=== PATIENT | male | born 1980 | race Caucasian/White ===

== ENCOUNTER 2024-10-08 16:11 | Emergency (ER) | payer BC, OTHER ==
[~2024-10-08] VITALS: Ht 185.4 cm; Wt 100.0 kg
--- NOTE | 2024-10-08 16:29 | ED.PDOC ---
History of Present Illness HPI Comments 44-year-old male came to the ER stating that he scraped himself about a week ago working in the garage causing skin breakage of the right lower extremity. He was never seen by his provider because he thought the leg was getting better. Last few days he started to notice more redness around the wound. Denies shortness a breath chest pain. Denies leg pain. He does not know when he had his last tetanus. Denies any other symptoms. Time Seen by MD: 16:17 Reviewed Notes: Nurses Notes, Medications, Allergies Information Source: Patient Mode of Arrival: Ambulatory Severity: Moderate Timing: Days Duration: Since onset Past Medical History PAST MEDICAL HISTORY: Denies Surgical History: Denies all surgeries Social History Smoker: Non-Smoker Alcohol: Denies ETOH Use Drugs: Denies Drug Use Constitutional: denies: chills, diaphoresis, fatigue, fever, malaise, sweats, weakness, others EENTM: denies: blurred vision, double vision, ear bleeding, ear discharge, ear drainage, ear pain, ear ringing, eye pain, eye redness, hearing loss, mouth pain, mouth swelling, nasal discharge, nose bleeding, nose congestion, nose pain, photophobia, tearing, throat pain, throat swelling, voice changes, others Respiratory: denies: cough, hemoptysis, orthopnea, SOB at rest, shortness of breath, SOB with excertion, stridor, wheezing, others Cardiovascular: denies: chest pain, dizzy spells, diaphoresis, Dyspnea on exertion, edema, irregular heart beat, left arm pain, lightheadedness, palpitations, PND, syncope, others Gastrointestinal: denies: abdomen distended, abdominal pain, blood streaked bowels, constipated, diarrhea, dysphagia, difficulty swallowing, hematemesis, melena, nausea, poor appetite, poor fluid intake, rectal bleeding, rectal pain, vomiting, others Genitourinary: denies: burning, dysuria, flank pain, frequency, hematuria, incontinence, penile discharge, penile sore, pain, testicle pain, testicle swelling, urgency, others Neurological: denies: dizziness, fainting, headache, left sided numbness, left sided weakness, numbness, paresthesia, pre-existing deficit, right sided numbness, right sided weakness, seizure, speech problems, tingling, tremors, weakness, others Musculoskeletal: denies: back pain, gout, joint pain, joint swelling, muscle pain, muscle stiffness, neck pain, others Integumetry: reports: wounds (Right lower extremity); denies: bruises, change in color, change in hair/nails, dryness, laceration, lesions, lumps, rash, others Allergic/Immunocompromised: denies: Difficulty Healing, Frequent Infections, Hives, Itching, others Hematologic/Lymphatic: denies: anemia, blood clots, easy bleeding, easy bruising, swollen glands, others Endocrine: denies: excessive hunger, excessive sweating, excessive thirst, excessive urination, flushing, intolerance to cold, intolerance to heat, unexplained weight gain, unexplained weight loss, others Psychiatric: denies: anxiety, bipolar disorder, depression, hopeless, panic disorder, schizophrenia, sleepless, suicidal, others Physical Exam General Appearance: Moderate Distress HEENT: Normal ENT Inspection, Pharynx Normal, TMs Normal Neck: Full Range of Motion, Non-Tender, Normal, Normal Inspection Respiratory: Chest Non-Tender, Lungs Clear, No Accessory Muscle Use, No Respiratory Distress, Normal Breath Sounds Cardiovascular: No Edema, No JVD, No Murmur, No Gallop, Normal Peripheral Pulses, Regular Rate/Rhythm Breast Exam: Deferred Gastrointestinal: No Organomegaly, Non Tender, No Pulsatile Mass, Normal Bowel Sounds, Soft Genitalia: Deferred Pelvic: Deferred Rectal: Deferred Extremities: No calf tenderness, Normal range of motion, No pedal edema Musculoskeletal : Apperance: Normal Neurologic: Alert, No Motor Deficits, No Sensory Deficits Cerebellar Function: Normal Reflexes: Normal Skin: Wounds (Right lower extremity) Peripheral Pulses: 3+ Radial (R), 3+ Radial (L) Lymphatic: No Adenopathy Was a procedure done? Was a procedure done?: No Differential Dx Considerations may include: Cellulitis X-Ray, Labs, Meds, VS Patient alert. Complaining of redness of the right lower extremity. Had injury to that extremity a week ago. Vitals stable. Answering questions. No shortness a breath. No chest pain. No pain on walking. Patient insists on going home. Was given tetanus. Was given Rocephin. Was given prescription of amoxicillin clindamycin antibiotic. Explained to the patient. Insists on leaving. Signed against medical advice. Was told to come back if there is any problem. Time of 1ST Reevaluation: 16:35 Reevaluation 1ST: Unchanged Patient Education/Counseling: Diagnosis, Treatment, Prognosis, Need For Follow Up Family Education/Counseling: No Family Present Departure 1 Departure Time of Disposition: 16:37 Impression: Primary Impression: Cellulitis Qualified Codes: L03.115 - Cellulitis of right lower limb Disposition: ADMITTED INPATIENT Admit to: Med Surg Condition: Guarded e-Prescriptions Clindamycin Hcl (Clindamycin Hcl) 300 Mg Cap 1 CAP PO TID for 10 Days, #30 CAP Prov: GISELA POST MD 10/08/24 Amoxicillin Trihydrate (Amoxicillin) 500 Mg Cap 1 CAP PO TID for 10 Days, #30 CAP Prov: GISELA POST MD 10/08/24 Critical Care Note Critical Care Time?: No Stability Stability form required: No Heart Score Heart Score: Heart Score Response (Comments) Value History N/A 0 EKG N/A 0 Age N/A 0 Risk Factors N/A 0 Troponin N/A 0 Total 0 GISELA POST MD Oct 08, 2024 16:29
[2024-10-08 16:35] VITALS: BP 216/110; PULSE 108; RESP 20; O2SAT 98
[2024-10-08] MEDS ORDERED: CLIN1CAP70 PO (16:38)
[2024-10-08] MEDS ORDERED: AMOX500C2 PO (16:38)
[2024-10-08] MEDS: cefTRIAXone SOD 1,000 MG VL IM ONE (16:50)
[2024-10-08] MEDS: TETANUS-DIPTH-ACEL PERTUSSIS 0.5ML SYR Tdap IM ONE (16:51)
[2024-10-08] MEDS: cloNIDine HCL 0.1 MG TAB PO ONE (16:52)
== END 2024-10-08 17:00 | disposition left against medical advice (07) ==
LOC: ER 16:11
DX: L03.115 Cellulitis of right lower limb (principal)
CPT/HCPCS: 90471; 90715; 96372; 99284; J0696

== ENCOUNTER 2025-04-22 20:26 | Inpatient (IN) | payer BC ==
[~2025-04-22] VITALS: Ht 185.4 cm; Wt 91.9 kg
[~2025-04-22 20:26] MED LIST: AMOX500C2 PO; CLIN1CAP70 PO
--- NOTE | 2025-04-22 21:03 | ED.PDOC ---
History of Present Illness HPI Comments This is a 44 year-old male who presents to the ED for a wound check S/P amputation of the R foot 3rd, 4th, and 5th digits X2 weeks ago. Patient is unable to ambulate and arrived to the ED via wheelchair. Patient states the amputation was done in the [place] X2 weeks ago, due to an infection caused by DM. Patient reports taking Antibiotics, Amoxicillin and Penicillin, daily, as prescribed. Patient states he removed the vacuum dressing from the wound yesterday. Patient denies having a scheduled appt with his PCP for follow up of the wound. At this time, the patients wound was re-wrapped with non-adherent padding applied. Patient has no further complaints at this time and otherwise denies further associated symptoms of rash, itchiness, uncontrolled bleeding, drainage, or N/V/D. REVIEW OF SYSTEMS: General: No fever, no chills, positive fatigue HEENT: No sore throat, no earache, no congestion, positive neck pain. Cardiac: No chest pain. No palpitations. Lungs: Positive shortness of breath, no cough. GI: No nausea, no vomiting, no diarrhea, no constipation, no abdominal pain : No dysuria, frequency, or urgency. Positive hematuria. Musculoskeletal: Positive joint pain , no joint swelling, no extremity edema. Skin: No rash, no itching. Neuro: No headache, dizziness, or weakness PHYSICAL EXAM: General: Awake, alert and oriented. No acute distress. Skin: Skin in warm, dry and intact. Appropriate color for ethnicity. HEENT: The head is normocephalic and atraumatic. Conjunctivae are clear without exudates or hemorrhage. Sclera is non-icteric. EOM are intact. No signs of nystagmus. Eyelids are normal in appearance without swelling or lesions. Oral mucosa is pink and moist Neck: The neck is supple with painful range of motion. No JVD. Cardiac: Heart rate and rhythm are normal. No murmurs, gallops, or rubs are auscultated. Respiratory: No signs of respiratory distress. Lung sounds are clear in all lobes bilaterally without rales, rhonchi, or wheezes. Abdominal: Abdomen is soft, non-tender without distention, guarding or rigidity. Bowel sounds are present and normoactive in all four quadrants. Extremities: Open wound of the R lateral foot. No purulent drainage noted. Amputation of 3rd 4th and 5th toes. Neurological: The patient is awake, alert and oriented to person, place, and time with normal speech. Speech is clear. There is no facial asymmetry. Psychiatric: Appropriate mood and affect. Good judgement and insight. Chief Complaint: Wound Check Time Seen by MD: 20:39 Primary Care Provider: NONE Reviewed Notes: Nurses Notes, Medications, Allergies Allergies: Coded Allergies: NO KNOWN ALLERGIES (Unverified , 10/08/24) Home Meds Active Scripts Clindamycin Hcl (Clindamycin Hcl) 300 Mg Cap, 1 CAP PO TID for 10 Days, #30 CAP Prov:GISELA POST MD 10/08/24 Amoxicillin Trihydrate (Amoxicillin) 500 Mg Cap, 1 CAP PO TID for 10 Days, #30 CAP Prov:GISELA POST MD 10/08/24 Information Source: Patient Mode of Arrival: Wheelchair Severity: Moderate Timing: Weeks (2) Duration: Since onset Prehospital treatment: None Past Medical History PAST MEDICAL HISTORY: DM Surgical History (Other): Amputation of the R foot 3rd, 4th, and 5th digits Family History Family History: Reviewed,noncontributory to illness, No family hx of Cancer, No family hx of DM, No family hx of Heart sarah, No family hx of HTN, No family hx ofKidney sarah, No family hx of Liver sarah, No family hx of Lung sarah, No family hx of Stroke Social History Smoker: Non-Smoker Alcohol: Denies ETOH Use Drugs: Denies Drug Use Lives In: Home Was a procedure done? Was a procedure done?: No Differential Dx Considerations may include: Infection, hyperglycemia, DKA, renal failure, anemia, other X-Ray, Labs, Meds, VS Vital Signs Date Time Temp Pulse Resp B/P (MAP) Pulse Ox O2 Delivery O2 Flow Rate FiO2 04/23/25 05:08 98.2 86 18 146/74 (98) 98 98.2 04/22/25 20:26 98.2 91 18 146/73 97 98.2 Lab Test 04/22/25 21:00 Range/Units White Blood Count 10.6 4.4-10.8 10^3/uL Red Blood Count 2.47 L 4.5-5.90 10^6/uL Hemoglobin 6.9 *L 13.5-17.5 g/dL Hematocrit 20.8 L 41.0-53.0 % Mean Corpuscular Volume 84.2 80.0-100.0 fL Mean Corpuscular Hemoglobin 28.0 28.0-32.0 pg Mean Corpuscular Hemoglobin Concent 33.2 32.0-36.0 g/dL Red Cell Distribution Width 15.9 H 11.8-14.3 % Platelet Count 448 140-450 10^3/uL Mean Platelet Volume 8.8 6.9-10.8 fL Neutrophils (%) (Auto) 74.9 37.0-80.0 % Lymphocytes (%) (Auto) 15.1 10.0-50.0 % Monocytes (%) (Auto) 8.5 0.0-12.0 % Eosinophils (%) (Auto) 0.8 0.0-7.0 % Basophils (%) (Auto) 0.7 0.0-2.0 % Neutrophils # (Auto) 7.9 1.6-8.6 10 ^3/uL Lymphocytes # (Auto) 1.6 0.4-5.4 10 ^3/uL Monocytes # (Auto) 0.9 0-1.3 10 ^3/uL Eosinophils # (Auto) 0.1 0-0.8 10 ^3/uL Basophils # (Auto) 0.1 0-0.2 10 ^3/uL Nucleated Red Blood Cells 0.0 % Sodium Level 131 L 136-145 mmol/L Potassium Level 4.6 3.5-5.1 mmol/L Chloride Level 98 98-107 mmol/L Carbon Dioxide Level 25 20-31 mmol/L Anion Gap 8 5-15 Blood Urea Nitrogen 29 H 9-23 mg/dL Creatinine 2.22 H 0.700-1.30 mg/dL Glomerular Filtration Rate Calc 37 >90 mL/min BUN/Creatinine Ratio 13.1 10.0-20.0 Serum Glucose 260 H 74-106 mg/dL Calcium Level 8.8 8.7-10.4 mg/dL Current Medications Medications (Trade) Dose Ordered Sig/Erich Route Start Time Stop Time Status Last Admin Sodium Chloride 1,000 ml @ 100 mls/hr Q10H ONCE IV 04/22/25 22:15 04/23/25 08:14 DC 04/22/25 22:15 Images Reviewed?: Images reviewed and evaluated by me Time of 1ST Reevaluation: 21:37 Reevaluation 1ST: Unchanged Patient Education/Counseling: Diagnosis, Treatment Family Education/Counseling: No Family Present Medical Screening: No EMC Exist At This Time SEPSIS Sepsis Screen Date sepsis recognized/suspect: Apr 22, 2025 Time Sepsis recognized/suspect: 2025 Recent Procedure: Yes On Antibiotic Therapy: Yes Respiratory Rate >20: No Heart Rate >90: Yes Temp<36 C (96.8 F) or >38.3 C: No SBP <90 or MAP <65 mmHG: No New Acute Mental Status Change: No Is the patient on CPAP, BIPAP,: No Physician Orders Type And Screen (04/22/25 21:58) Pulse Ox Cont Per Day (04/22/25 21:58) Vital Signs .PER UNIT PROTOCOL (04/22/25 21:58) Administer Blood Products UD (04/22/25 21:58) Vital Signs Date Time Temp Pulse Resp B/P (MAP) Pulse Ox O2 Delivery O2 Flow Rate FiO2 04/23/25 05:08 98.2 86 18 146/74 (98) 98 98.2 04/22/25 20:26 98.2 91 18 146/73 97 98.2 Laboratory Tests Test 04/22/25 21:00 White Blood Count 10.6 10^3/uL (4.4-10.8) Departure 1 Departure Time of Disposition: 22:17 Impression: Primary Impression: Severe anemia Additional Impressions: Hyponatremia RITIKA (acute kidney injury) Disposition: ADMITTED INPATIENT Condition: Stable Comments MDM: 44 y/o male 3 days s/p amputation of right 3rd, 4th, and 5th toes (procedure performed in the [place]) presents for wound check. Recently diagnosed with diabetes. Found to be hyperglycemic, hyponatremic and with Hg of 6.9. Transfusion initiated in the ED. Patient admitted to hospitalist service for further treatm ent, evaluation and monitoring. Extensive evaluation was performed in attempt to identify or rule out: (See differential diagnosis section) The following tests were ordered, and results were reviewed by me and discussed with patient: (See diagnostic results section) Decision regarding hospitalization or escalation of hospital level of care: Risk and benefits of admission for further treatment of patient's condition was considered. Due to patient's current clinical condition, high risk of decline and poor outcome if discharged and need for further inpatient management and monitoring, patient will be admitted to the hospital. Critical Care Note Critical Care Time?: No Stability Stability form required: No Heart Score Heart Score: Heart Score Response (Comments) Value History N/A 0 EKG N/A 0 Age N/A 0 Risk Factors N/A 0 Troponin N/A 0 Total 0 I personally scribed for AMOR DIETRICH MD ([email or web address]) on 04/22/25 at 21:03. Electronically submitted by Neelam Ravi ([email or web address]). AMOR DIETRICH MD Apr 22, 2025 21:03
[2025-04-22 21:16] LABS: Nucleated Red Blood Cells % 0.0 %
[2025-04-22 21:17] LABS: Hematocrit 20.8 % (41.0-53.0); Mean Corpuscular Hemoglobin 28.0 pg (28.0-32.0); Mean Corpuscular Volume 84.2 fL (80.0-100.0)
[2025-04-22 21:27] LABS: Hemoglobin 6.9 g/dL (13.5-17.5)
[2025-04-22 21:28] LABS: Potassium 4.6 mmol/L (3.5-5.1)
[2025-04-22 21:29] LABS: Anion Gap 8 (5-15); Calcium 8.8 mg/dL (8.7-10.4); Carbon Dioxide 25 mmol/L (20-31)
[2025-04-22 21:34] LABS: BUN/Creatinine Ratio 13.1 (10.0-20.0); Blood Urea Nitrogen 29 mg/dL (9-23); Chloride 98 mmol/L (98-107); Glucose 260 mg/dL (74-106); Sodium 131 mmol/L (136-145)
[2025-04-22] MEDS: SODIUM CHLORIDE 0.9% 1,000 ML IV ONE (22:15)
[2025-04-23] VITALS (10 sets, daily range): BP systolic 143–161; BP diastolic 77–89; PULSE 93–98; RESP 12–21; TEMP 97.6–98.6; O2SAT 98
[2025-04-23] MEDS ORDERED: HYDROcodone-ACET 5/325MG TAB PO PRN (08:30)
[2025-04-23] MEDS ORDERED: ACETAMINOPHEN 325 MG TAB PO PRN (08:30)
[2025-04-23] MEDS ORDERED: ONDANSETRON HCL 4 MG/2 ML VIAL IV PRN (08:30)
[2025-04-23] MEDS ORDERED: DOCUSATE SOD 100 MG CAP PO PRN (08:30)
--- NOTE | 2025-04-23 08:32 | DVHHP2 ---
History of Present Illness Reason for Visit: Wound check History of Present Illness Rashard Brewer is a 44-year-old male with no significant past medical history who came to the hospital with a right foot wound. Patient went on a cruise in the [place] for vacation. While there he had a callus on the bottom of his right foot open up. He ended up having to go to port and be hospitalized. During that hospitalization he had his 3rd-5th toes amputated, received blood transfusions, was diagnosed as diabetic, and acute kidney injury. Once the patient was stabilized, he was flown home, accompanied by a physician, to his local hospital to continue his care. Endocrine: Diabetes Past Surgical History: Other (Vasectomy ) Smoke: No ALCOHOL: occassional Drugs: None Lives: with Family Domestic Violence: Neg Review of Systems Constitutional: No: Fever, Chills, Sweats, Weakness, Malaise, Other Eyes: No: Pain, Vision change, Conjunctivae inflammation, Eyelid inflammation, Other, Redness ENT: No: Ear pain, Ear discharge, Nose pain, Nose discharge, Nose congestion, Mouth pain, Mouth swelling, Throat pain, Throat swelling, Other Respiratory: No: Cough, Dry, Shortness of breath, SOB with excertion, Wheezing, Hemoptysis, Pleuritic Pain, Sputum, Wheezing, Other Cardiovascular: Edema (right foot); No: Chest Pain, Palpitations, Orthopnea, Paroxysmal Noc. Dyspnea, Lt Headedness, Other Gastrointestinal: No: Nausea, Vomiting, Abdominal Pain, Diarrhea, Constipation, Melena, Hematochezia, Other Genitourinary: No Dysuria, No Frequency, No Incontinence, No Hematuria, No Retention, No Other Musculoskeletal: foot pain (right foot wound); No: other, neck pain, shoulder pain, arm pain, back pain, hand pain, leg pain Skin: No: Rash, Lesions, Jaundice, Bruising, Other Neurological: No: Weakness, Numbness, Incoordination, Change in speech, Confusion, Seizures, Other Allergies: Coded Allergies: NO KNOWN ALLERGIES (Unverified , 10/08/24) Exam Vital Signs Vital Signs Date Time Temp Pulse Resp B/P (MAP) Pulse Ox O2 Delivery O2 Flow Rate FiO2 04/23/25 05:08 98.2 86 18 146/74 (98) 98 98.2 General Appearance: Alert, Oriented X3, Cooperative, moderate distress HEENT: Atraumatic, PERRLA Respiratory: Clear to auscultation, Normal air movement Cardiovascular: Regular rate, Normal S1, Normal S2, No murmurs Abdominal: Normal bowel sounds, Soft, No tenderness, No hepatospenomegaly Extremities: No clubbing, No cyanosis, No edema, Normal pulses Skin: No rashes, No significant lesion (open wound to right foot, S/P amputation 2 weeks ago) Neuro: Normal speech, Strength at 5/5 X4 ext, Normal tone, Other (non-weight baring to right foot) Psych/Mental Status: Mental status NL, Mood NL Labs/Xrays Labs Test 04/22/25 21:00 Range/Units White Blood Count 10.6 4.4-10.8 10^3/uL Red Blood Count 2.47 L 4.5-5.90 10^6/uL Hemoglobin 6.9 *L 13.5-17.5 g/dL Hematocrit 20.8 L 41.0-53.0 % Mean Corpuscular Volume 84.2 80.0-100.0 fL Mean Corpuscular Hemoglobin 28.0 28.0-32.0 pg Mean Corpuscular Hemoglobin Concent 33.2 32.0-36.0 g/dL Red Cell Distribution Width 15.9 H 11.8-14.3 % Platelet Count 448 140-450 10^3/uL Mean Platelet Volume 8.8 6.9-10.8 fL Neutrophils (%) (Auto) 74.9 37.0-80.0 % Lymphocytes (%) (Auto) 15.1 10.0-50.0 % Monocytes (%) (Auto) 8.5 0.0-12.0 % Eosinophils (%) (Auto) 0.8 0.0-7.0 % Basophils (%) (Auto) 0.7 0.0-2.0 % Neutrophils # (Auto) 7.9 1.6-8.6 10 ^3/uL Lymphocytes # (Auto) 1.6 0.4-5.4 10 ^3/uL Monocytes # (Auto) 0.9 0-1.3 10 ^3/uL Eosinophils # (Auto) 0.1 0-0.8 10 ^3/uL Basophils # (Auto) 0.1 0-0.2 10 ^3/uL Nucleated Red Blood Cells 0.0 % Sodium Level 131 L 136-145 mmol/L Potassium Level 4.6 3.5-5.1 mmol/L Chloride Level 98 98-107 mmol/L Carbon Dioxide Level 25 20-31 mmol/L Anion Gap 8 5-15 Blood Urea Nitrogen 29 H 9-23 mg/dL Creatinine 2.22 H 0.700-1.30 mg/dL Glomerular Filtration Rate Calc 37 >90 mL/min BUN/Creatinine Ratio 13.1 10.0-20.0 Serum Glucose 260 H 74-106 mg/dL Calcium Level 8.8 8.7-10.4 mg/dL SEPSIS Sepsis Screen Date sepsis recognized/suspect: Apr 22, 2025 Time Sepsis recognized/suspect: 2025 Recent Procedure: Yes On Antibiotic Therapy: Yes Respiratory Rate >20: No Heart Rate >90: Yes Temp<36 C (96.8 F) or >38.3 C: No SBP <90 or MAP <65 mmHG: No New Acute Mental Status Change: No Is the patient on CPAP, BIPAP,: No Physician Orders Admit (04/23/25 08:29) Code Status (04/23/25 08:29) 2 Gm Sodium Diet (04/23/25 Breakfast) Hydrocodone-Acet 5/325mg Tab ([place] /32 (04/23/25 08:30) Ondansetron Hcl (Zofran) (04/23/25 08:30) Docusate Sodium Capsule (Colace Capsule) (04/23/25 08:30) Complete Blood Count (04/24/25 04:00) Comprehensive Metabolic Panel (04/24/25 04:00) Pt Request For Service (04/23/25 08:29) Condition: Serious (04/23/25 08:29) Acetaminophen Tablet (Tylenol Tablet) (04/23/25 08:30) *Podiatry Consult Joann(Dv) (04/23/25 08:29) Vital Signs Date Time Temp Pulse Resp B/P (MAP) Pulse Ox O2 Delivery O2 Flow Rate FiO2 04/23/25 05:08 98.2 86 18 146/74 (98) 98 98.2 Laboratory Tests Test 04/22/25 21:00 White Blood Count 10.6 10^3/uL (4.4-10.8) Assessment/Plan Assessment/Plan Assessment: Severe anemia, Acute Kidney injury, Right foot wound, Newly diagnosed diabetic, S/P toe amputation, Plan: Admit to Med-Surg, Podiatry consult, Arterial Doppler of right leg, IV antibiotics, IV hydration, Transfuse 2 units of PRBC, Manage/Monitor H&H closely, Wound care consult, A1c, Accu checks with sliding scale coverage, Plan discussed with: Patient, Spouse My Orders Orders - KAMI GIMENEZ Procedure Category Date Status Time Admit ADMIT 04/23/25 Verified 08:29 Code Status CODE 04/23/25 Verified 08:29 2 Gm Sodium Diet DIET 04/23/25 Verified Breakfast Hydrocodone-Acet PHA 04/23/25 Verified 5/325mg Tab ([place] 08:30 Ondansetron Hcl PHA 04/23/25 Verified (Zofran) 08:30 Docusate Sodium PHA 04/23/25 Verified Capsule (Colace 08:30 Complete Blood Count LAB 04/24/25 Verified 04:00 Comprehensive LAB 04/24/25 Verified Metabolic Panel 04:00 Pt Request For Service PT 04/23/25 Verified 08:29 Condition: Serious ZUHAIR 04/23/25 Verified 08:29 Acetaminophen Tablet PHA 04/23/25 Verified (Tylenol Tablet) 08:30 *Podiatry Consult CONS 04/23/25 Verified Musson(Dvmg) 08:29 Date of Service: Apr 23, 2025 Billing Provider: KAMI GIMENEZ Common Visit Codes: [id number] INP/OBS CARE (HIGH) KAMI GIMENEZ Apr 23, 2025 08:32
[2025-04-23] MEDS ORDERED: VANCOMYCIN PER PHARMACY 0 MG IV SCH (08:45)
[2025-04-23] MEDS ORDERED: VANCOMYCIN 1GM/250ML KIT 250 ML IV SCH (09:00)
[2025-04-23] MEDS ORDERED: DEXTROSE (50%) 50ML SYRG IV PRN (09:30)
[2025-04-23] MEDS ORDERED: InsuLIN REG 1unit/0.01ml Soln (100units/ml) SC SCH ×2 (11:30→22:00)
[2025-04-23] MEDS: ACCU-CHEK COMFORT CURVE STRIP VI SCH (11:30)
--- NOTE | 2025-04-23 12:32 | DVH ---
RIGHT Lower Extremity Arterial Duplex Date: 04/23/2025 11:43 AM Clinical History: PVD, open foot wound Comparison: None Technique: Duplex Doppler evaluation including color Doppler and spectral/pulsed waveform analysis of the right lower extremity arteries was performed. Finding: RIGHT: Peak systolic velocities are as follows: [employer] 147 cm/s Deep femoral 116 cm/s SFA proximal 105 cm/s SFA mid-portion 102 cm/s SFA distal 87 cm/s Popliteal 102 cm/s Posterior tibial 67 cm/s Dorsalis pedis 115 cm/s The waveforms are triphasic. REFERENCE VALUES, [facility]) vascular Imaging Lab Criteria: Peak systolic velocity ranges (in cm/sec) are as follows: <150 cm/s - <20 % stenosis 150-200 cm/s - 20-49% stenosis 200-300 cm/s - 50-75% stenosis >300 cm/s -> 75% stenosis IMPRESSION: There is no evidence for peripheral vascular insufficiency in the right lower extremity. No significant focal stenosis is identified.
--- NOTE | 2025-04-23 14:13 | DVHPN2 ---
Assessment/Plan Assessment/Plan progress note 44 M w recent OSH admission for leg wound s/p 4th and 5th toe amputation and iv coamox. 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 unasyn podiatri consult lantus and iss trend cr cmp diet diabetic dvt ppx hold full code Plan discussed with: Patient My Orders Orders - JESSIE SNOW MD Procedure Category Date Status Time Unasyn PHA 04/23/25 Verified Ampicillin/Sulbactam 14:15 Insulin Lantus PHA 04/23/25 Verified (Glargine) (Lantus) 22:00 Insulin Lispro PHA 04/23/25 Verified (Human) (Humalog) 17:00 Date of Service: Apr 23, 2025 Billing Provider: JESSIE SNOW MD Common Visit Codes: [id number] INP/OBS CARE(HIGH) JESSIE SNOW MD Apr 23, 2025 14:13
[2025-04-23] MEDS ORDERED: AMPICILLIN & SULBACTAM SODIUM 3 GM in SODIUM CHL 0.9% 100 ML IV SCH (14:15)
[2025-04-23] MEDS: INSULIN LISPRO (HUMAN) 100 UNITS/ML ML SC SCH (17:00)
[2025-04-23] MEDS ORDERED: INSLANTI SC (18:35)
[2025-04-23] MEDS: AMPICILLIN & SULBACTAM SODIUM 3 GM in SODIUM CHL 0.9% 100 ML IV SCH (20:43)
[2025-04-23] MEDS: INSULIN LANTUS (GLARGINE) 1 /0.01ml (100units/ml) SC SCH (22:38)
[2025-04-24] VITALS (9 sets, daily range): BP systolic 153–189; BP diastolic 81–99; PULSE 83–101; RESP 16–20; TEMP 96.8–98.6; O2SAT 96–99
[2025-04-24 07:35] LABS: Hematocrit 24.0 % (41.0-53.0); Nucleated Red Blood Cells % 0.1 %
[2025-04-24 07:39] LABS: Alanine Aminotransferase 22 U/L (7-40); Anion Gap 8 (5-15); BUN/Creatinine Ratio 15.5 (10.0-20.0); Carbon Dioxide 22 mmol/L (20-31); Chloride 106 mmol/L (98-107); Potassium 5.1 mmol/L (3.5-5.1); Sodium 136 mmol/L (136-145)
[2025-04-24 07:40] LABS: Bilirubin, Total 0.4 mg/dL (0.2-1.0); Hemoglobin 8.1 g/dL (13.5-17.5); Mean Corpuscular Hemoglobin 29.0 pg (28.0-32.0); Mean Corpuscular Volume 86.3 fL (80.0-100.0)
[2025-04-24 07:46] LABS: Albumin 2.9 g/dL (3.2-4.8); Alkaline Phosphatase 305 U/L (46-116); Blood Urea Nitrogen 30 mg/dL (9-23); Calcium 8.3 mg/dL (8.7-10.4); Glucose 190 mg/dL (74-106); Total Protein 5.3 g/dL (5.7-8.2)
--- NOTE | 2025-04-24 09:26 | DVHPN2 ---
Assessment/Plan Assessment/Plan progress note 44 M w recent OSH admission for leg wound s/p 4th and 5th toe amputation and iv coamox. seen today, pend podiatry eval. 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 unasyn podiatri consult lantus and iss trend cr cmp diet diabetic dvt ppx hold full code Plan discussed with: Patient My Orders Orders - JESSIE SNOW MD Procedure Category Date Status Time Insulin Lantus PHA 04/23/25 In Process (Glargine) (Lantus) 22:00 Insulin Lispro PHA 04/23/25 In Process (Human) (Humalog) 17:00 * Dietary Consult CONS 04/23/25 Transmitted 17:59 Ampicillin & PHA 04/23/25 In Process Sulbactam Sodium 20:00 Date of Service: Apr 24, 2025 Billing Provider: JESSIE SNOW MD Common Visit Codes: [id number] INP/OBS CARE(HIGH) JESSIE SNOW MD Apr 24, 2025 09:26
--- NOTE | 2025-04-24 13:07 | DVHCONRES ---
Date Seen: Apr 24, 2025 Reason for Consultation Right foot wound History of Present Illness Rashard Brewer is a 44-year-old male with no significant past medical history who came to the hospital with a right foot wound. Patient went on a cruise in the [place] for vacation. While there he had a callus on the bottom of his right foot open up. He ended up having to go to port and be hospitalized. During that hospitalization he had his 3rd-5th toes amputated, received blood transfusions, was diagnosed as diabetic, and acute kidney injury. Once the patient was stabilized, he was flown home, accompanied by a physician, to his local hospital to continue his care. Past Medical History See H&P Past Surgical History See H&P Family History: Diabetes mellitus G8 MOTHER G8 FATHER Allergies: Coded Allergies: NO KNOWN ALLERGIES (Unverified , 10/08/24) Home Meds Reported Medications Insulin Glargine (Lantus) 100 Unit/Ml Inj, 20 UNIT SC, INJ 04/23/25 Current Medications Current Medications Medications (Trade) Dose Ordered Sig/Erich Route PRN Reason Start Time Stop Time Status Last Admin Insulin Human Regular (InsuLIN R) HS SC 04/23/25 22:00 04/23/25 14:10 DC Ampicillin Sodium/ Sulbactam Sodium 3 gm/Sodium Chloride 100 ml @ 100 mls/hr Q6H IV 04/23/25 14:15 04/23/25 18:15 DC Insulin Glargine (Lantus) 20 units HS SC 04/23/25 22:00 04/23/25 22:38 Insulin Human Lispro (HumaLOG) AC SC 04/23/25 17:00 04/24/25 06:56 Ampicillin Sodium/ Sulbactam Sodium 3 gm/Sodium Chloride 100 ml @ 100 mls/hr Q6H IV 04/23/25 20:00 04/24/25 08:30 Vital Signs Vital Signs Date Time Temp Pulse Resp B/P (MAP) Pulse Ox O2 Delivery O2 Flow Rate FiO2 04/24/25 09:00 98.6 97 18 165/93 (117) 99 98.6 04/23/25 20:00 Room Air* 0 21 Physical Exam Dermatological: Skin is dry with mild erythema and some maceration around the wound site No gross deformities noted Mild non-pitting edema present bilaterally Right lateral open wound where previous amputation was made with granular base no apparent wound Vascular: Dorsalis pedis and posterior tibial pulses are 1+ bilaterally Capillary refill is under 2 seconds Skin temperature is warm bilaterally Neurologic: Protective sensation is absent on the plantar forefoot bilaterally Monofilament testing reveals decreased sensation in multiple plantar sites Musculoskeletal: Range of motion at the ankle and MTP joints is within normal limits. Strength is 5/5 in all tested muscle groups. Gait is antalgic due to offloading of the affected limb. Labs/Diagnostic Data Labs Test 04/24/25 11:22 04/24/25 06:47 04/23/25 09:40 Range/Units POC Glucose 141 H 70-106 mg/dl White Blood Count 7.7 # 4.4-10.8 10^3/uL Red Blood Count 2.78 L 4.5-5.90 10^6/uL Hemoglobin 8.1 #L 13.5-17.5 g/dL Hematocrit 24.0 #L 41.0-53.0 % Mean Corpuscular Volume 86.3 80.0-100.0 fL Mean Corpuscular Hemoglobin 29.0 28.0-32.0 pg Mean Corpuscular Hemoglobin Concent 33.6 32.0-36.0 g/dL Red Cell Distribution Width 16.1 H 11.8-14.3 % Platelet Count 331 140-450 10^3/uL Mean Platelet Volume 8.9 6.9-10.8 fL Neutrophils (%) (Auto) 72.5 37.0-80.0 % Lymphocytes (%) (Auto) 15.4 10.0-50.0 % Monocytes (%) (Auto) 9.9 0.0-12.0 % Eosinophils (%) (Auto) 1.3 0.0-7.0 % Basophils (%) (Auto) 0.9 0.0-2.0 % Neutrophils # (Auto) 5.6 1.6-8.6 10 ^3/uL Lymphocytes # (Auto) 1.2 0.4-5.4 10 ^3/uL Monocytes # (Auto) 0.8 0-1.3 10 ^3/uL Eosinophils # (Auto) 0.1 0-0.8 10 ^3/uL Basophils # (Auto) 0.1 0-0.2 10 ^3/uL Nucleated Red Blood Cells 0.1 % Sodium Level 136 # 136-145 mmol/L Potassium Level 5.1 3.5-5.1 mmol/L Chloride Level 106 98-107 mmol/L Carbon Dioxide Level 22 20-31 mmol/L Anion Gap 8 5-15 Blood Urea Nitrogen 30 H 9-23 mg/dL Creatinine 1.93 H 0.700-1.30 mg/dL Glomerular Filtration Rate Calc 43 >90 mL/min BUN/Creatinine Ratio 15.5 10.0-20.0 Serum Glucose 190 H 74-106 mg/dL Calcium Level 8.3 L 8.7-10.4 mg/dL Total Bilirubin 0.4 0.2-1.0 mg/dL Aspartate Amino Transferase (AST) 16 13-40 U/L Alanine Aminotransferase (ALT) 22 7-40 U/L Alkaline Phosphatase 305 H 46-116 U/L Total Protein 5.3 L 5.7-8.2 g/dL Albumin 2.9 L 3.2-4.8 g/dL Random Vancomycin Level < 3.0 L 5-10 ug/mL Hemoglobin A1c 10.5 H <5.7 % A1C Problems(with codes): (1) Cellulitis (2) Hyponatremia (3) RITIKA (acute kidney injury) (4) Severe anemia Plan/Recommendation ASSESSMENT: Patient is a 44 year old seen on the floor for a worsening ulcer PLAN: - The patients chart was reviewed, clinical findings were discussed with the patient, the etiologies of the conditions were discussed in detail, and a treatment plan was agreed to at this time, with both oral and written instructions provided. - recommend we get an MRI of the right foot to rule out any remaining osteomyelitis - patient will need a wound VAC upon discharge - possible PICC line 6 weeks IV antibiotics depending on MRI - wound itself looks like most of the remaining bone has been granulated upon - can follow up me a week or 2 after discharge All questions were answered and concerns addressed to the patient's satisfaction. The patient was given the phone number to the clinic and was told how to make contact with the clinic should any concerns or questions arise. Patient understands that if any questions or concerns arise prior to the next appointment, we should be contacted immediately. FOLLOW-UP: Continue to follow while inpatient Plan discussed with: Patient Visit Coding Podiatry Date of Service if different f: Apr 24, 2025 Billing Provider: BOB TOBIN DPM Podiatry Common Visit Codes: CONSULT ONLY Podiatry Consult Codes: 91405-XJ/OBS CONSLTJ NEW/EST HI 80 BOB TOBIN DPM Apr 24, 2025 13:07
--- NOTE | 2025-04-24 18:24 | DVH ---
EXAM: MRI MRI R FOOT WO CONTRAST INDICATION: r/o OM TECHNIQUE: Multiplanar, multisequence imaging of the right foot without contrast COMPARISON: None FINDINGS: BONES: Significant osteomyelitis of the residual stumps of the 4th and 5th metatarsals with prominent overlying ulceration and phlegmon. Deep possible insinuating fluid of the plantar lateral aspect of the midfoot measuring 2.5 x 1.5 cm, incompletely characterized without intravenous contrast MUSCLES: Diffuse edematous appearance likely compatible with a myositis and/or subacute on chronic de nervation of the intrinsic musculature. Mild fatty infiltration along abductor digiti minimi muscle b yevgeniy. TENDONS: Status post resection along the 4th and 5th digit tendons related to amputation LIGAMENTS: Intact. JOINT SPACES: No joint effusion. NEUROVASCULAR: Normal. OTHER: None. IMPRESSION: 1. Significant osteomyelitis of the residual stumps of the 4th and 5th metatarsals with prominent ove rlying ulceration and phlegmon. 2. Deep possible insinuating fluid of the plantar lateral aspect of the midfoot measuring 2.5 x 1.5 c m, incompletely characterized without intravenous contrast. 3. Diffuse edematous appearance likely compatible with a myositis and/or subacute on chronic denervat ion of the intrinsic musculature.
[2025-04-25] VITALS (8 sets, daily range): BP systolic 155–178; BP diastolic 83–99; PULSE 96–102; RESP 16–20; TEMP 97.9–98.5; O2SAT 96–99
[2025-04-25 07:00] LABS: Hematocrit 23.8 % (41.0-53.0); Hemoglobin 7.9 g/dL (13.5-17.5); Mean Corpuscular Hemoglobin 27.7 pg (28.0-32.0); Mean Corpuscular Volume 83.1 fL (80.0-100.0); Nucleated Red Blood Cells % 0.1 %
[2025-04-25 07:18] LABS: Anion Gap 10 (5-15); Carbon Dioxide 25 mmol/L (20-31); Chloride 103 mmol/L (98-107); Potassium 4.3 mmol/L (3.5-5.1); Sodium 138 mmol/L (136-145)
[2025-04-25 07:20] LABS: Calcium 8.5 mg/dL (8.7-10.4)
[2025-04-25 07:24] LABS: BUN/Creatinine Ratio 12.3 (10.0-20.0)
[2025-04-25 07:27] LABS: Blood Urea Nitrogen 23 mg/dL (9-23); Glucose 189 mg/dL (74-106)
[2025-04-25 10:53] LABS: INR 1.04 (0.9-1.15); Partial Thromboplastin Time 27.9 SEC (24.5-34.5); Prothrombin Time 11.0 sec (9.3-11.8)
--- NOTE | 2025-04-25 14:11 | DVHDS2 ---
Discharge Summary Date of Admission Apr 23, 2025 at 08:29 Date of Discharge: Apr 25, 2025 Labs/Diagnostic Data: Laboratory Results Test 04/25/25 10:23 04/25/25 10:00 04/25/25 06:19 04/25/25 05:46 Prothrombin Time 11.0 sec (9.3-11.8) Prothrombin Time INR 1.04 (0.9-1.15) Activated Partial Thromboplast Time 27.9 SEC (24.5-34.5) POC Glucose 188 mg/dl (70-106) White Blood Count 7.3 10^3/uL (4.4-10.8) Red Blood Count 2.86 10^6/uL (4.5-5.90) Hemoglobin 7.9 g/dL (13.5-17.5) Hematocrit 23.8 % (41.0-53.0) Mean Corpuscular Volume 83.1 fL (80.0-100.0) Mean Corpuscular Hemoglobin 27.7 pg (28.0-32.0) Mean Corpuscular Hemoglobin Concent 33.3 g/dL (32.0-36.0) Red Cell Distribution Width 15.4 % (11.8-14.3) Platelet Count 347 10^3/uL (140-450) Mean Platelet Volume 9.1 fL (6.9-10.8) Neutrophils (%) (Auto) 73.4 % (37.0-80.0) Lymphocytes (%) (Auto) 15.1 % (10.0-50.0) Monocytes (%) (Auto) 8.4 % (0.0-12.0) Eosinophils (%) (Auto) 2.3 % (0.0-7.0) Basophils (%) (Auto) 0.8 % (0.0-2.0) Neutrophils # (Auto) 5.4 10 ^3/uL (1.6-8.6) Lymphocytes # (Auto) 1.1 10 ^3/uL (0.4-5.4) Monocytes # (Auto) 0.6 10 ^3/uL (0-1.3) Eosinophils # (Auto) 0.2 10 ^3/uL (0-0.8) Basophils # (Auto) 0.1 10 ^3/uL (0-0.2) Nucleated Red Blood Cells 0.1 % Sodium Level 138 mmol/L (136-145) Potassium Level 4.3 mmol/L (3.5-5.1) Chloride Level 103 mmol/L (98-107) Carbon Dioxide Level 25 mmol/L (20-31) Anion Gap 10 (5-15) Blood Urea Nitrogen 23 mg/dL (9-23) Creatinine 1.87 mg/dL (0.700-1.30) Glomerular Filtration Rate Calc 45 mL/min (>90) BUN/Creatinine Ratio 12.3 (10.0-20.0) Serum Glucose 189 mg/dL (74-106) Calcium Level 8.5 mg/dL (8.7-10.4) Test 04/24/25 06:47 04/23/25 09:40 Total Bilirubin 0.4 mg/dL (0.2-1.0) Aspartate Amino Transferase (AST) 16 U/L (13-40) Alanine Aminotransferase (ALT) 22 U/L (7-40) Alkaline Phosphatase 305 U/L (46-116) Total Protein 5.3 g/dL (5.7-8.2) Albumin 2.9 g/dL (3.2-4.8) Random Vancomycin Level < 3.0 ug/mL (5-10) Hemoglobin A1c 10.5 % A1C (<5.7) Other Laboratory Tests 04/25/25 05:46 Brief Hx & Hospital Course: 44 M w recent OSH admission for leg wound s/p 4th and 5th toe amputation and iv coamox. seen by podiatry. MRI showed osteo. place picc line. 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 anemia s/p transfusion osteomyelitis Discharge Disposition: Home with Health Services Discharge Instruct/Medications Miscellaneous Medications Insulin Glargine (Lantus), 20 UNIT SC, (Reported) Discharge Statement: "Patient was advised to return to the ER or call 911 if any headaches, dizziness, shortness of breath, chest pain, abdominal pain, bleeding, fevers, or worsening of medical condition. Patient was counseled about treatment plan, medications, possible side effects, patientverbalized understanding. All questions were answered to the best of my ability. This discharge took greater then 30 minutes in planning, reviewing documentation, counseling the patient, and discussing with other team members." ASSESSMENT ASSESSMENT Assessment Date of Service: Apr 25, 2025 Billing Provider: JESSIE SNOW MD Common Visit Codes: 71982-QXQ/OBS DISCH DAY >30min JESSIE SNOW MD Apr 25, 2025 14:11
[2025-04-25] MEDS ORDERED: METF-490 PO (14:19)
[2025-04-25] MEDS ORDERED: AMLO1TAB23 PO (14:19)
[2025-04-25] MEDS ORDERED: ALCO70PA28 XX (14:19)
[2025-04-25] MEDS ORDERED: BLOOMIS91 XX (14:19)
[2025-04-25] MEDS ORDERED: INSU100I70 SC (14:19)
[2025-04-25] MEDS ORDERED: LANC-347 XX (14:19)
[2025-04-25] MEDS ORDERED: GLUC-145 VI (14:19)
[2025-04-25] MEDS ORDERED: INSU32MI9 XX (14:19)
[2025-04-25] MEDS: LISINOPRIL 5 MG TAB PO ONE (15:52)
[2025-04-25] MEDS: ERTAPENEM SOD INJ 1 GM in SODIUM CHL 0.9% 50 ML IV ONE (15:53)
[2025-04-25] MEDS: LIDOCAINE 1% (LOCAL ANESTH.) PF 5ml SDV ID ONE (19:15)
[2025-04-25] MEDS: SODIUM CHLOR 0.9% PF (SALINE LOCK) 10ML VIAL/SYR IV SCH (21:01)
[2025-04-26] VITALS (7 sets, daily range): BP systolic 151–174; BP diastolic 86–98; PULSE 92–100; RESP 12–20; TEMP 97.4–98.5; O2SAT 92–99
[2025-04-26 07:23] LABS: Hemoglobin 7.9 g/dL (13.5-17.5); Nucleated Red Blood Cells % 0.0 %
[2025-04-26 07:25] LABS: Hematocrit 23.3 % (41.0-53.0); Mean Corpuscular Hemoglobin 28.3 pg (28.0-32.0); Mean Corpuscular Volume 83.0 fL (80.0-100.0)
[2025-04-26 07:41] LABS: Alanine Aminotransferase 27 U/L (7-40); Chloride 102 mmol/L (98-107)
[2025-04-26 07:42] LABS: Albumin 3.3 g/dL (3.2-4.8); Anion Gap 10 (5-15); BUN/Creatinine Ratio 10.4 (10.0-20.0); Bilirubin, Total 0.4 mg/dL (0.2-1.0); Blood Urea Nitrogen 21 mg/dL (9-23); Carbon Dioxide 26 mmol/L (20-31); Potassium 4.2 mmol/L (3.5-5.1); Sodium 138 mmol/L (136-145); Total Protein 6.2 g/dL (5.7-8.2)
[2025-04-26 07:44] LABS: Alkaline Phosphatase 370 U/L (46-116); Calcium 8.6 mg/dL (8.7-10.4); Glucose 134 mg/dL (74-106)
[2025-04-26] MEDS: ERTAPENEM SOD INJ 1 GM in SODIUM CHL 0.9% 50 ML IV SCH (11:20)
--- NOTE | 2025-04-26 15:31 | DVHPN2 ---
Subjective denies any pain/no complaints Changes from previous H/P or p: No Changes Eyes: No Pain, No Vision change, No Conjunctivae inflammation, No Eyelid inflammation, No Other, No Redness ENT: No Ear pain, No Ear discharge, No Nose pain, No Nose discharge, No Nose congestion, No Mouth pain, No Mouth swelling, No Throat pain, No Throat swelling, No Other Cardiovascular: No Chest Pain, No Palpitations, No Orthopnea, No Paroxysmal Noc. Dyspnea; Edema (right foot); No Lt Headedness, No Other Respiratory: No Cough, No Dry, No Shortness of breath, No SOB with excertion, No Wheezing, No Hemoptysis, No Pleuritic Pain, No Sputum, No Other Gastrointestinal: No Nausea, No Vomiting, No Abdominal Pain, No Diarrhea, No Constipation, No Melena, No Hematochezia, No Other Genitourinary: No Dysuria, No Frequency, No Incontinence, No Hematuria, No Retention, No Other Musculoskeletal: No other, No neck pain, No shoulder pain, No arm pain, No back pain, No hand pain, No leg pain; foot pain (right foot wound) Skin: No Rash, No Lesions, No Jaundice, No Bruising, No Other Objective Vitals Vital Signs Date Time Temp Pulse Resp B/P (MAP) Pulse Ox O2 Delivery O2 Flow Rate FiO2 04/26/25 13:06 98.3 96 18 174/90 (118) 97 98.3 04/26/25 08:00 Room Air* 0 21 Intake/Output Intake and Output 04/26/25 07:00 Intake Total 1150 ml Output Total 425 ml Balance 725 ml Intake Oral 900 ml IV Total 250 ml Output Urine Total 425 ml # Voids 3 # Bowel Movements 2 General Appearance: Alert, Oriented X3, Cooperative, No acute distress Cardiovascular: Regular rate, Normal S1, Normal S2 Abdomen: Normal bowel sounds, Soft, No tenderness, No hepatospenomegaly Musculoskeletal: Normal sensory function, Normal motor function Extremities: Other (wound dressing in place-in rt leg) Neuro: Normal gait, Strength at 5/5 X4 ext, Normal tone, Sensation intact, C ranial nerves 3-12 NL Psych/Mental Status: Mental status NL, Mood NL Medications Current Medications Medications Dose Ordered Sig/Erich Route Start Time Stop Time Status Last Admin Dose Admin Acetaminophen 650 mg Q6HP PRN PO 04/23/25 08:30 Vancomycin HCl 250 ml @ 250 mls/hr Q1H IV 04/23/25 09:00 04/23/25 10:59 Cancel Diagnostic Test (Pha) 1 strip ACHS 04/23/25 11:30 04/26/25 14:06 1 STRIP Dextrose 50 ml UD PRN IV 04/23/25 09:30 Insulin Glargine 20 units HS SC 04/23/25 22:00 04/25/25 21:02 20 UNITS Insulin Human Lispro AC SC 04/23/25 17:00 04/25/25 16:58 1 UNITS Ertapenem 1 gm/ Sodium Chloride 50 ml @ 100 mls/hr DAILY IV 04/26/25 10:00 04/26/25 11:20 100 MLS/HR Sodium Chloride 10 ml QSHIFT@10,22 IV 04/25/25 22:00 04/26/25 11:21 10 ML Laboratory Results Laboratory Tests 04/26/25 05:35 Chemistry Test 04/26/25 05:35 Albumin 3.3 g/dL (3.2-4.8) Calcium Level 8.6 mg/dL (8.7-10.4) L Total Protein 6.2 g/dL (5.7-8.2) LFT Test 04/26/25 05:35 Alanine Aminotransferase (ALT) 27 U/L (7-40) Alkaline Phosphatase 370 U/L (46-116) H Aspartate Amino Transferase (AST) 22 U/L (13-40) Total Bilirubin 0.4 mg/dL (0.2-1.0) Microbiology Microbiology Date/Time Source Procedure Growth Status 04/25/25 10:02 Nose MRSA Screen - Final Complete Labs and/or images reviewed: Labs reviewed by me, Image(s) reviewed by me Assessment/Plan Assessment/Plan rt foot osteomyelitis- per podiatry med management s/p recent amputation of rt 4th and 5th toe for infection/gangrene dm with hyperglycemia-improved anemia- stable/no active bleeding Plan discussed with: Patient, Other Date of Service: Apr 26, 2025 Billing Provider: SABRINA FERRARO MD Common Visit Codes: [id number] INP/OBS CARE(LOW) SABRINA FERRARO MD Apr 26, 2025 15:30
[2025-04-27 05:00] VITALS: BP 157/95; PULSE 93; RESP 20; TEMP 98.1; O2SAT 96
[2025-04-27 08:00] VITALS: PULSE 95
[2025-04-27 09:00] VITALS: BP 157/88; PULSE 95; RESP 12; TEMP 98.3; O2SAT 98
[2025-04-27 13:00] VITALS: BP 163/92; PULSE 97; RESP 12; TEMP 97.8; O2SAT 97
[2025-04-27] MEDS: hydrALAZINE HCL 20 MG/ML VL IV PRN (16:46)
[2025-04-27 20:00] VITALS: PULSE 94; RESP 20; O2SAT 98
[2025-04-27 21:00] VITALS: BP 148/85; PULSE 94; RESP 20; TEMP 97.4; O2SAT 98
[2025-04-28 05:00] VITALS: BP 147/93; PULSE 96; RESP 20; TEMP 98.2; O2SAT 96
[2025-04-28 08:00] VITALS: PULSE 96
[2025-04-28 09:00] VITALS: BP 157/94; PULSE 96; RESP 12; TEMP 97.7; O2SAT 98
[2025-04-28 12:45] VITALS: BP 158/90; PULSE 94; RESP 16; TEMP 98.1; O2SAT 99
--- NOTE | 2025-04-28 16:40 | DVHPN2 ---
Assessment/Plan Assessment/Plan progress note 44 M w recent OSH admission for leg wound s/p 4th and 5th toe amputation and iv coamox. for dc, pending iv abx and woundvac. 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 unasyn podiatri consult lantus and iss trend cr cmp diet diabetic dvt ppx hold full code Plan discussed with: Patient Date of Service: Apr 28, 2025 Billing Provider: JESSIE SNOW MD Common Visit Codes: 16444-PZM/OBS DISCH DAY >30min JESSIE SNOW MD Apr 28, 2025 16:40
== END 2025-04-28 17:02 | disposition home health service (06) | DRG 638 ==
LOC: ER 20:26 → OVERFLOW 04-23 08:29 → WEST WING 04-23 17:08
PROVIDERS: ADMIT Student in an Organized Health Care Education/Training Program; ATTEND Student in an Organized Health Care Education/Training Program
PROC: 30233N1 Transfusion of Nonautologous Red Blood Cells into Peripheral Vein, Percutaneous Approach (ICD-10-PCS; principal; 2025-04-23)
PROC: 02HV33Z Insertion of Infusion Device into Superior Vena Cava, Percutaneous Approach (ICD-10-PCS; 2025-04-25)
PROC: B548ZZA Ultrasonography of Superior Vena Cava, Guidance (ICD-10-PCS; 2025-04-25)
DX: E11.69 Type 2 diabetes mellitus with other specified complication (principal); E11.52 Type 2 diabetes mellitus with diabetic peripheral angiopathy with gangrene; E87.1 Hypo-osmolality and hyponatremia; M86.8X7 Other osteomyelitis, ankle and foot; N17.9 Acute kidney failure, unspecified; N18.32 Chronic kidney disease, stage 3b; D64.9 Anemia, unspecified; E11.22 Type 2 diabetes mellitus with diabetic chronic kidney disease; E11.65 Type 2 diabetes mellitus with hyperglycemia; R74.01 Elevation of levels of liver transaminase levels; Z89.421 Acquired absence of other right toe(s); Z83.3 Family history of diabetes mellitus; Z79.4 Long term (current) use of insulin
CPT/HCPCS: 36415; 36569; 73718; 76937; 80048; 80053; 80202; 82270; 82962; 83036; 85025; 85610; 85730; 86850; 86900; 86901; 86920; 87081; 93926; 96360; 97110; 97116; 97163; 97530; G0378; J1335; J1815

== ENCOUNTER 2025-04-29 10:59 | Emergency (ER) | payer BC ==
[~2025-04-29] VITALS: Ht 185.4 cm; Wt 96.0 kg
[~2025-04-29 10:59] MED LIST changes: +ALCO70PA28 XX; +AMLO1TAB23 PO; -AMOX500C2 PO; +BLOOMIS91 XX; -CLIN1CAP70 PO; +GLUC-145 VI; +INSLANTI SC; +INSU100I70 SC; +INSU32MI9 XX; +LANC-347 XX; +METF-490 PO
--- NOTE | 2025-04-29 11:22 | ED.PDOC ---
Musculoskeletal HPI Comments HPI: 44 y/o M, with PMHx of asthma and DM, presents to the ED for CC of IV Abx infusion. Patient states, [facility] d/t osteomyelitis following, amputation of the 4th and 5th digits of the right foot. Patient relays, that he was discharged home with antibiotics to have infused at home by home health nurse however, home health nurse was unable to administer them today (04/29/25). Patient denies any pain to his right foot, fever, fatigue, nausea, vomiting, or chills. No other symptoms or modifying factors are present at this time. Past Medical History: ASTHMA, DM Past Surgical History: AMPUTATION 4TH AND 5TH DIGITS OF THE RIGHT FOOT, VASECTOMY REVIEW OF SYSTEMS: CONSTITUTIONAL: Denies acute: fever, diaphoresis, chills, generalized weakness. HEAD: Denies acute: headache, photophobia Eyes: Denies acute: Double vision, vision loss, eye pain, eye discharge. EARS: Denies acute: tinnitus, hearing loss, ear discharge, ear pain, THROAT: Denies acute: sore throat, swelling, difficulty swallowing , pain with swallowing, change in voice. NECK: Denies acute: neck pain, neck swelling, stiff neck. HEART: Denies acute : chest pain, palpitations, LUNGS: Denies acute: SOB, wheezing, cough, hemoptysis ABDOMEN: Denies acute: abdominal pain, Nausea, Vomiting, diarrhea, melena , hematemesis, hematochezia SKIN: Denies acute: rash, redness, lesions, itchiness. EXTREMITIES: Denies acute: calf pain, numbness, tingling, weakness, denies pain in extremity. Denies acute: Low back pain. Neuro: Denies acute: focal neurological deficit, motor or sensory focal neurological deficit, tremors, seizure like activity, confusion, dizziness, change in mental status, loss of bowel or bladder function, cauda equina like symptoms. : Denies acute: dysuria, hematuria, flank pain, increase in urinary frequency. PSYCH: Denies acute: hallucination, suicidal ideation, homicidal ideation. PHYSICAL EXAM: Right upper extremity PICC line General: -----no---acute distress, awake and alert. Head: normocephalic, atraumatic. Neck: supple, trachea is midline, no swelling. Throat: Normal phonation. Eyes:, no erythema, no purulent discharge, no proptosis, no icterus. Heart: regular rate, regular rhythm, no significant murmur appreciated. Lungs: no apparent respiratory distress, Able to speak in full sentences. No wheezing, no rhonchi, no crackles. No stridors Clear to auscultation bilaterally. Abdomen: non tender to palpation, non distended, soft, no guarding, no rebound, + bowel sounds. Neuro: Awake, Alert, oriented to name, self, situation, follows commands GCS=15. Speech is normal. Skin: no petechia, no purpura, no cyanosis, slightly-pale, not jaundice. Lower extremities: Right foot wound dressing in place. Makes eye contact. moves all four extremities. Face: no apparent facial droop. ED COURSE: DISCLAIMER: This medical document was created using an electronic medical record system with voice recognition software and computerized dictation system. Although this document has been carefully reviewed, there might still be some phonetic and typographical errors. Occasional wrong-word or "sound-alike" substitutions may have occurred due to the inherent limitations of voice recognition software. These areas are purely typographical due to imperfections of the software programs and do not reflect any compromise in the patient's medical care. Please read the chart carefully and recognize, using context, where these substitutions have occurred. Chief Complaint: Lower Extremity Time Seen by MD: 11:00 Primary Care Provider: NONE Reviewed Notes: Allergies Allergies: Coded Allergies: NO KNOWN ALLERGIES (Unverified , 10/08/24) Home Meds Active Scripts Insulin Pen Needle (Bd Pen Needle/Mia/Ultra) 32 Gx4mm Mis, GX4MM XX DAILY, #100 11 Refills Prov:JESSIE SNOW MD 04/25/25 Lancets (Freestyle Lancets) Lancets Mis, UNIT XX DAILY, #100 11 Refills Prov:JESSIE SNOW MD 04/25/25 Isopropyl Alcohol (Alcohol Prep Pad) 70 % Pad, UNIT XX DAILY, #100 11 Refills Prov:JESSIE SNOW MD 04/25/25 Blood Glucose Monitoring Suppl (Freestyle Lite Blood Gluc) 1 Mis Mis, MIS XX UD, #1 Prov:JESSIE SNOW MD 04/25/25 Glucose Blood (Freestyle Test Strips) Sarah, 1 UNIT DAILY for 30 Days, #100 MISC 11 Refills Prov:JESSIE SNOW MD 04/25/25 Amlodipine Besylate (Amlodipine Besylate) 10 Mg Tab, 1 TAB PO DAILY, #90 TAB 1 Refill Prov:JESSIE SNOW MD 04/25/25 Metformin Hydrochloride (METFORMIN HCL ER) 1,000 Mg Tab, 1 TAB PO DAILY for 90 Days, #90 TAB 1 Refill Prov:JESSIE SNOW MD 04/25/25 Insulin Glargine-Yfgn (Insulin Glargine) 100 Unit/Ml Inj, 20 UNIT SC DAILY for 30 Days, #30 INJ Prov:JESSIE SNOW MD 04/25/25 Reported Medications Insulin Glargine (Lantus) 100 Unit/Ml Inj, 20 UNIT SC, INJ 04/23/25 Information Source: Patient Mode of Arrival: Wheelchair Location: Right Was a procedure done? Was a procedure done?: No Differential Diagnosis EXT Differential Diagnosis: N/A X-Ray, Labs, Meds, VS Vital Signs Date Time Temp Pulse Resp B/P (MAP) Pulse Ox O2 Delivery O2 Flow Rate FiO2 04/29/25 11:59 98.3 103 16 130/86 (101) 97 98.3 04/29/25 11:01 98.3 103 16 130/86 97 98.3 Time of 1ST Reevaluation: 11:30 Reevaluation 1ST: N/A Patient Education/Counseling: Diagnosis, Treatment Family Education/Counseling: Diagnosis, Treatment Comments PATIENT RECEIVED HIS DOSE OF ANTIBIOTICS HERE THROUGH THE PICC LINE. Nurse instructed him and taught him and his how to care and give antibiotics at home. Patient already has home health nurse established however she did not show up today. Patient did not wait and took off without any reassessment or re-evaluation or getting any discharge instructions. Departure 1 Departure Time of Disposition: 11:31 Impression: Primary Impression: Receiving intravenous antibiotic treatment at home Disposition: 07 LEFT AWOL/ELOPED Condition: Stable Additional Instructions: PATIENT ELOPED AFTER HE FINISH THE ENTRPENUM IV ANTIBIOTICS INFUSION. Discharged With: Self, Spouse Critical Care Note Critical Care Time?: No I personally scribed for NEELA TSE DO ([email or web address]) on 04/29/25 at 11:22. Electronically submitted by Susy He ([email or web address]). I personally scribed for NEELA TSE DO ([email or web address]) on 04/29/25 at 11:59. Electronically submitted by Susy He ([email or web address]). NEELA TSE DO Apr 29, 2025 11:22
[2025-04-29 11:59] VITALS: BP 130/86; PULSE 103; RESP 16; TEMP 98.3; O2SAT 97
== END 2025-04-29 13:30 | disposition left against medical advice (07) ==
LOC: ER 10:59
DX: M86.9 Osteomyelitis, unspecified (principal); E11.69 Type 2 diabetes mellitus with other specified complication; J45.909 Unspecified asthma, uncomplicated; Z79.4 Long term (current) use of insulin; Z79.84 Long term (current) use of oral hypoglycemic drugs; Z89.431 Acquired absence of right foot

== ENCOUNTER → 2025-07-25 | Outpatient (CLI) | payer BC | END | disposition home or self-care (01) | LOC: LAB 08:35 | PROVIDERS: ATTEND Internal Medicine | DX: E11.69 Type 2 diabetes mellitus with other specified complication (principal) | CPT/HCPCS: 36415; 83036 ==